=== PATIENT | male | born 1950 | race African-American/Black ===

== ENCOUNTER 2022-04-17 14:24 | Emergency (ER) | payer MEDICAID ==
[~2022-04-17] VITALS: Ht 162.6 cm; Wt 68.0 kg
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
[2022-04-17] MEDS ORDERED: HYDROCODONE/APAP 10-325 MG TABLET ONE (16:42)
[2022-04-17] MEDS ORDERED: CEphaleXIN 500 MG CAPSULE ONE (16:42)
[2022-04-17] MEDS ORDERED: CEphaleXIN 500 MG CAPSULE PO ONE (16:45)
[2022-04-17] MEDS ORDERED: HYDROCODONE/APAP 10-325 MG TABLET PO ONE (16:45)
[2022-04-17] MEDS ORDERED: CEPH500C2 PO (18:03)
[2022-04-17] MEDS ORDERED: HYDR-3972 PO (18:03)
--- NOTE | 2022-04-17 21:21 | NUR ---
Patient given written and verbal discharge instructions. Patient verbalizes understanding of instructions. Patient is ambulatory with steady gait. Refuses offer of [facility] placement. Patient given list of available shelters in surrounding area.
[2022-04-17 22:04] VITALS: BP 112/72
== END 2022-04-17 22:04 | disposition home or self-care (01) ==
LOC: ER 14:24
DX: S00.83XD Contusion of other part of head, subsequent encounter (principal); S01.81XD Laceration without foreign body of other part of head, subsequent encounter; S50.11XD Contusion of right forearm, subsequent encounter; Y09 Assault by unspecified means; K02.9 Dental caries, unspecified; Z59.00 Homelessness unspecified; G89.29 Other chronic pain; M54.9 Dorsalgia, unspecified
CPT/HCPCS: 70450; 70486; 73090; A4663